=== PATIENT | female | born 1995 | race Caucasian/White ===

== ENCOUNTER 2019-05-29 10:18 | Emergency (ER) | payer OTHER ==
[2019-05-29] MEDS ORDERED: ONDANSETRON HCL INJ/PF 4 MG/2 ML SDV IV ONE (10:55)
[2019-05-29] MEDS ORDERED: NORMAL SALINE 1000 ML 1,000 ML IV ONE (10:55)
[2019-05-29 11:11] LABS: HEMATOCRIT 44.4 % (36.0-47.0); MEAN CORPUSCULAR HEMOGLOBIN 29.2 pg (27.0-33.4); MEAN CORPUSCULAR HGB CONC 33.8 g/dL (32.0-36.0); MEAN CORPUSCULAR VOLUME 86 fl (80-97); PLATELET COUNT 371 10^3/uL (150-450); RED BLOOD COUNT 5.14 10^6/uL (3.72-5.28); RED CELL DISTRIBUTION WIDTH 13.7 % (11.5-14.0); WHITE BLOOD COUNT 22.1 10^3/uL (4.0-10.5)
[2019-05-29 11:23] LABS: APPEARANCE,URINE CLEAR; BILIRUBIN,URINE NEGATIVE (NEGATIVE); COLOR,URINE YELLOW; GLUCOSE, URINE 150 mg/dL (NEGATIVE); KETONES,URINE TRACE mg/dL (NEGATIVE); LEUKOCYTE ESTERASE,URINE TRACE (NEGATIVE); NITRITE,URINE NEGATIVE (NEGATIVE); PROTEIN,URINE 100 mg/dL (NEGATIVE); URINE SPECIFIC GRAVITY 1.015; UROBILINOGEN,URINE NEGATIVE mg/dL (<2.0)
[2019-05-29 11:32] LABS: ALBUMIN 5.2 g/dL (3.5-5.0); ALKALINE PHOSPHATASE 79 U/L (38-126); ANION GAP 16 (5-19); ASPARTATE AMINO TRANSFERASE 22 U/L (14-36); BILIRUBIN,DIRECT 0.1 mg/dL (0.0-0.4); BILIRUBIN,TOTAL 0.7 mg/dL (0.2-1.3); BLOOD UREA NITROGEN 6 mg/dL (7-20); CALCIUM 9.8 mg/dL (8.4-10.2); CARBON DIOXIDE 19 mmol/L (22-30); CHLORIDE 103 mmol/L (98-107); GLUCOSE 147 mg/dL (75-110); POTASSIUM 3.9 mmol/L (3.6-5.0); TOTAL PROTEIN 8.6 g/dL (6.3-8.2)
[2019-05-29 11:44] LABS: ABSOLUTE LYMPHOCYTES# (MANUAL) 1.3 10^3/uL (0.5-4.7); ABSOLUTE MONOCYTES # (MANUAL) 0.2 10^3/uL (0.1-1.4); BASOPHILS % (MANUAL) 0 % (0-2); EOSINOPHILS % (MANUAL) 0 % (0-6); LYMPHOCYTES % (MANUAL) 3 % (13-45); MONOCYTES % (MANUAL) 1 % (3-13); PLATELET COMMENT ADEQUATE; RBC MORPHOLOGY COMMENT NORMO-CYTIC/CHROMIC; SEGMENTED NEUTROPHILS % (MAN) 93 % (42-78); TOTAL CELLS COUNTED 100
[2019-05-29] MEDS ORDERED: MAG HYDROX/AL HYDROX/SIMETH SUSP 30 ML UDCUP PO ONE (12:27)
[2019-05-29] MEDS ORDERED: LORAZEPAM INJ 2 MG/1 ML VIAL IV ONE (12:27)
[2019-05-29] MEDS ORDERED: LIDOCAINE 2% VISCOUS SOLN 20 ML UDCUP PO ONE (12:27)
[2019-05-29] MEDS ORDERED: METOCLOPRAMIDE HCL ORAL SOLN 10 MG/10 ML UDCUP PO ONE (12:27)
[2019-05-29] MEDS ORDERED: RINGERS SOLUTION,LACTATED 1,000 ML IV ONE (12:27)
--- NOTE | 2019-05-29 12:31 | ER Document Report ---
ED GI/ - General Chief Complaint: Vomiting Stated Complaint: VOMITING Time Seen by Provider: 05/29/19 11:58 Notes: Patient is a 23-year-old female who presents the emergency department with a chief complaint of nausea, vomiting, and diarrhea. She has been vomiting for the past 4 days. Her diarrhea started this morning. Patient states that she has not been able to keep anything down. She also has a past history of anxiety. Patient states that she has not been able to take her anxiety medication. She also recently just moved to the area. Patient denies any fever, cough, body aches, vaginal discharge, or dysuria. Patient has a history of ovarian cyst, but states that she does not have any pain from them. Patient also states that she has been constipated for the past 2 weeks and has not had a normal bowel movement in the past 2 weeks. Patient denies any vomiting or nausea. She also has a pustule that she noticed 2 days ago and states that it is a "bug bite" that she got from staying with a friend. Patient denies any hi story of IV drug abuse or current drug abuse. - Related Data Allergies/Adverse Reactions: amoxicillin [From Amoxil] Allergy (Verified 05/29/19 10:41) Penicillins Allergy (Verified 05/29/19 10:41) Home Medications: Hydroxazine Past Medical History - Social History Smoking Status: Never Smoker Family History: Reviewed & Not Pertinent Patient has suicidal ideation: No Patient has homicidal ideation: No Review of Systems - Review of Systems Notes: REVIEW OF SYSTEMS: CONSTITUTIONAL : Denies recent illness. Denies recent unintentional weight loss. Denies fever, chills, or sweats. EENT: Denies eye, ear, throat, or mouth pain, discharge, or symptoms. Denies nasal or sinus congestion. CARDIOVASCULAR: Denies chest pain. RESPIRATORY: Denies shortness of breath, cough, congestion, difficulty breathing, or wheezing. GASTROINTESTINAL: Denies nausea, vomiting, and diarrhea. Denies abdominal pain. Denies constipation. GENITOURINARY: See HPI. MUSCULOSKELETAL: Denies neck and back pain. Denies joint pain or swelling. SKIN: Denies rash, itchiness, or lesions HEMATOLOGIC : Denies easy bruising or bleeding. LYMPHATIC: Denies swollen, painful, enlarged glands. NEUROLOGICAL: Denies no numbness or tingling denies weakness. Denies headache. Denies altered mental status. Denies alteration in speech. PSYCHIATRIC: Denies stress, anxiety, alteration in sleep patterns, or depression. WORKERS COMPENSATION COORDINATOR: Denies abnormal vaginal bleeding, vaginal discharge, itching, or any other symptoms. All other systems reviewed and negative. Physical Exam - Vital signs Vitals: Pulse Resp BP Pulse Ox 60 22 H 171/98 H 98 05/29/19 10:27 05/29/19 10:27 05/29/19 10:27 05/29/19 10:27 - Notes Notes: PHYSICAL EXAMINATION: GENERAL: Appears well, healthy, well-nourished, no acute distress. HEAD: Normocephalic, atraumatic. EYES: PERRL, conjunctiva normal, all extraocular movements intact, sclera nonicteric ENT: Dry mucous membranes. NECK: Supple, no noticeable swelling, redness, rash. Normal range of motion. LUNGS: Equal breath sounds bilaterally and clear to auscultation. No wheezes rales or rhonchi. CARDIOVASCULAR: S1-S2, regular rate, regular rhythm. Radial pulses 2+, normal. ABDOMEN: Normoactive bowel sounds. Soft, mildly tender generalized abdomen, no guarding, no rebound tenderness, and no masses palpated. EXTREMITIES: Normal strength and range of motion, no pitting or edema. No cyanosis. NEUROLOGICAL: Moves all extremities upon command. Strength 5/5 in all ex tremities. PSYCH: Normal mood, normal affect. SKIN: Warm, dry. No rash, lesions, ulcerations noted. Normal skin turgor. Course - Re-evaluation Re-evalutation: 05/29/19 13:10 Patient's hematology shows a leukocytosis of 22,000. Her chemistries show that she is dehydrated. She received a liter of fluids in triage and Zofran. Patient states that she still feels nauseous. She also states that she feels like her GI tract is raw. She received a GI cocktail. Patient has protein in her urine, most likely due to her being dehydrated. We will repeat chemistries after she receives more fluids. 05/29/19 15:49 Patient states that she is now having chest pain. This is most likely due to her vomiting. Will order a chest x-ray and give Carafate and Pepcid. Patient has history of gastric ulcer, which is most likely cause of her chest pain. 05/29/19 17:00 Patient states that she feels better after receiving Pepcid and Carafate. Her chest x-ray is normal. Patient will be sent home with Pepcid and Carafate. I have encouraged her to follow-up with a primary care provider in the area and to call her insurance company to see which primary care doctor she can go to. She is in agreement with this plan. Follow-up precautions were given. Verbal discharge instructions were given to the patient. They verbalized unders tanding. They are stable for discharge. - Vital Signs Vital signs: Temp Pulse Resp BP Pulse Ox 98.7 F 88 18 178/94 H 100 05/29/19 15:41 05/29/19 15:41 05/29/19 15:41 05/29/19 15:41 05/29/19 15:41 - Laboratory Result Diagrams: 05/29/19 09:52 05/29/19 14:05 Laboratory results interpreted by me: 05/29/19 05/29/19 05/29/19 09:52 09:52 09:52 WBC 22.1 H Seg Neuts % (Manual) 93 H Lymphocytes % (Manual) 3 L Monocytes % (Manual) 1 L Abs Neuts (Manual) 20.6 H Sodium Carbon Dioxide 19 L BUN 6 L Glucose 147 H Total Protein 8.6 H Albumin 5.2 H Lipase Urine Protein 100 H Urine Glucose (UA) 150 H Urine Ketones TRACE H Urine Blood MODERATE H Ur Leukocyte Esterase TRACE H 05/29/19 05/29/19 09:52 14:05 WBC Seg Neuts % (Manual) Lymphocytes % (Manual) Monocytes % (Manual) Abs Neuts (Manual) Sodium 136.1 L Carbon Dioxide 20 L BUN 5 L Glucose 118 H Total Protein Albumin Lipase 17.5 L Urine Protein Urine Glucose (UA) Urine Ketones Urine Blood Ur Leukocyte Esterase Discharge - Discharge Clinical Impression: Nausea Vomiting Qualifiers: Vomiting type: unspecified Vomiting Intractability: non-intractable Nausea presence: with nausea Qualified Code(s): R11.2 - Nausea with vomiting, unspecified Diarrhea Qualifiers: Diarrhea type: unspecified type Qualified Code(s): R19.7 - Diarrhea, unspecified Gastritis Qualifiers: Gastritis type: unspecified gastritis Chronicity: acute Gastritis bleeding: with bleeding Qualified Code(s): K29.01 - Acute gastritis with bleeding Condition: Stable Disposition: HOME, SELF-CARE Instructions: Antinausea Medication ([facility]), Intravenous (IV) Fluids ([facility]) Additional Instructions: You were seen today in the emergency department for nausea, vomiting, and diarrhea. Your labs show that you were dehydrated. You received IV fluids here in the emergency department. You are also being started on nausea medication at home. Please take as prescribed. Please establish a primary care provider as soon as you can. Follow-up with them as needed. Prescriptions: Sucralfate [Carafate 1 gm Tablet] 1 gm PO ACHS #120 tablet Famotidine [Pepcid 20 mg Tablet] 20 mg PO BID #60 tablet Metoclopramide HCl [Reglan 10 mg Tablet] 1 - 2 tab PO ASDIR PRN #25 tablet PRN Reason:
[2019-05-29] MEDS ORDERED: PROMETHAZINE HCL INJ 25 MG/1 ML VIAL IV ONE (13:51)
[2019-05-29 14:39] LABS: ANION GAP 14 (5-19); BLOOD UREA NITROGEN 5 mg/dL (7-20); CALCIUM 9.1 mg/dL (8.4-10.2); CARBON DIOXIDE 20 mmol/L (22-30); CHLORIDE 102 mmol/L (98-107); GLUCOSE 118 mg/dL (75-110)
[2019-05-29 15:43] VITALS: BP 178/94
[2019-05-29] MEDS ORDERED: SUCRALFATE 1 GM TABLET PO ONE (15:48)
[2019-05-29] MEDS ORDERED: FAMOTIDINE 40 MG/5 ML SUSP 50 ML PO ONE (15:48)
--- NOTE | 2019-05-29 16:26 | RADIOLOGY REPORT (SQ) ---
EXAM DESCRIPTION: CHEST SINGLE VIEW COMPLETED DATE/TIME: 05/29/2019 4:16 pm REASON FOR STUDY: chest pain COMPARISON: None. EXAM PARAMETERS: NUMBER OF VIEWS: One view. TECHNIQUE: Single frontal radiographic view of the chest acquired. RADIATION DOSE: NA LIMITATIONS: None. FINDINGS: LUNGS AND PLEURA: No opacities, masses or pneumothorax. No pleural effusion. MEDIASTINUM AND HILAR STRUCTURES: No masses. Contour normal. HEART AND VASCULAR STRUCTURES: Heart normal in size. Normal vasculature. BONES: No acute findings. HARDWARE: None in the chest. OTHER: No other significant finding. IMPRESSION: NO ACUTE RADIOGRAPHIC FINDING IN THE CHEST. TECHNICAL DOCUMENTATION: JOB ID: [id number] [employer]- All Rights Reserved Reading location - IP/workstation name: [email or web address]
[2019-05-29] MEDS ORDERED: PROMETHAZINE HCL INJ 25 MG/1 ML VIAL IM ONE (17:38)
== END 2019-05-29 17:45 | disposition home or self-care (01) ==
LOC: ER 10:18
DX: K29.01 Acute gastritis with bleeding (principal); R11.2 Nausea with vomiting, unspecified; R19.7 Diarrhea, unspecified; F41.9 Anxiety disorder, unspecified; Z79.899 Other long term (current) drug therapy
CPT/HCPCS: 99284; 96372; 96361; 96374; 96375; 36415; 87086; 83690; 85025; 81025; 80053; 81001; 71045; J3490 ×2; J2060; J2550; J2405; J7030; J7120

== ENCOUNTER 2019-06-01 12:13 | Emergency (ER) | payer OTHER ==
[2019-06-01] MEDS ORDERED: METOCLOPRAMIDE HCL INJ/PF 10 MG/2 ML SDV IV ONE (12:37)
[2019-06-01] MEDS ORDERED: NORMAL SALINE 1000 ML 1,000 ML IV ONE (12:37)
--- NOTE | 2019-06-01 12:41 | ER Document Report ---
ED Medical Screen (RME) - General Chief Complaint: Abdominal Pain Stated Complaint: VOMITING Time Seen by Provider: 06/01/19 12:23 Notes: Patient is a 23-year-old female who presents to the emergency department for vomiting. Patient has been vomiting for the past week. She was seen here in the emergency department and was given prescriptions, but was unable to get her prescriptions filled. Patient has history of cyclic vomiting syndrome. She also has history of marijuana use, which she states that she stopped using a week and a half ago. Patient also has a history of anxiety and normally takes Vistaril. Exam: Patient appears anxious and has a vomit bag in her hand. I have greeted and performed a rapid initial assessment of this patient. A comprehensive ED assessment and evaluation of the patient, analysis of test results and completion of medical decision making process will be conducted by an additional ED providers. TRAVEL OUTSIDE OF THE [place] IN LAST 30 DAYS: No - Related Data Allergies/Adverse Reactions: amoxicillin [From Amoxil] Allergy (Verified 06/01/19 12:32) Penicillins Allergy (Verified 06/01/19 12:32) Past Medical History - Social History Chew tobacco use (# tins/day): No Frequency of alcohol use: None Drug Abuse: None Physical Exam - Vital signs Vitals: Temp Pulse Resp BP Pulse Ox 97.8 F 134 H 20 174/119 H 100 06/01/19 12:22 06/01/19 12:22 06/01/19 12:22 06/01/19 12:22 06/01/19 12:22 Course - Vital Signs Vital signs: Temp Pulse Resp BP Pulse Ox 97.8 F 134 H 20 174/119 H 100 06/01/19 12:32 06/01/19 12:32 06/01/19 12:32 06/01/19 12:32 06/01/19 12:32
[2019-06-01 13:07] LABS: ABSOLUTE BASOPHILS # (AUTO) 0.1 10^3/uL (0.0-0.2); ABSOLUTE EOSINOPHILS # (AUTO) 0.1 10^3/uL (0.0-0.6); ABSOLUTE LYMPHOCYTES (AUTO) 3.4 10^3/uL (0.5-4.7); ABSOLUTE MONOCYTES (AUTO) 1.5 10^3/uL (0.1-1.4); ABSOLUTE NEUT (AUTO) 12.1 10^3/uL (1.7-8.2); BASOPHILS % (AUTO) 0.7 % (0-2); EOSINOPHILS % (AUTO) 0.6 % (0-6); HEMOGLOBIN 16.7 g/dL (12.0-15.5); LYMPHOCYTES % (AUTO) 19.5 % (13-45); MEAN CORPUSCULAR HEMOGLOBIN 29.1 pg (27.0-33.4); MEAN CORPUSCULAR HGB CONC 34.2 g/dL (32.0-36.0); MEAN CORPUSCULAR VOLUME 85 fl (80-97); MONOCYTES % (AUTO) 8.6 % (3-13); PLATELET COUNT 397 10^3/uL (150-450); RED BLOOD COUNT 5.74 10^6/uL (3.72-5.28); RED CELL DISTRIBUTION WIDTH 13.2 % (11.5-14.0); SEGMENTED NEUTROPHILS % (AUTO) 70.6 % (42-78); TOTAL CELLS COUNTED % (AUTO) 100 %; WHITE BLOOD COUNT 17.2 10^3/uL (4.0-10.5)
[2019-06-01] MEDS ORDERED: DIPHENHYDRAMINE HCL 50 MG/ML VIAL IV ONE (13:15)
[2019-06-01 13:30] LABS: ALBUMIN 5.3 g/dL (3.5-5.0); ALKALINE PHOSPHATASE 80 U/L (38-126); ASPARTATE AMINO TRANSFERASE 35 U/L (14-36); BILIRUBIN,DIRECT 0.3 mg/dL (0.0-0.4); BILIRUBIN,TOTAL 1.7 mg/dL (0.2-1.3); BLOOD UREA NITROGEN 14 mg/dL (7-20); CALCIUM 10.9 mg/dL (8.4-10.2); CARBON DIOXIDE 22 mmol/L (22-30); CHLORIDE 93 mmol/L (98-107); GLUCOSE 110 mg/dL (75-110); POTASSIUM 3.7 mmol/L (3.6-5.0); TOTAL PROTEIN 9.2 g/dL (6.3-8.2)
[2019-06-01 13:42] LABS: ANION GAP 21 (5-19)
[2019-06-01] MEDS ORDERED: DEXTROSE 5%-LACTATED RINGERS 1,000 ML IV ONE (14:00)
--- NOTE | 2019-06-01 14:00 | ER Document Report ---
Entered by MALLORY HILTON SCRIBE 06/01/19 1323 Acting as scribe for:LEELA MARKHAM MD ED General - General Chief Complaint: Abdominal Pain Stated Complaint: VOMITING Time Seen by Provider: 06/01/19 12:23 Mode of Arrival: Ambulatory Information source: Patient Notes: This 23-year-old female patient presents to the emergency department today with complaints of nausea and vomiting for the last 5 days. Patient states she moved here from [place] on 05/27/2019 and was seen here on 05/29/2019 for the same symptoms that she is being seen for today. Patient states in [place] she was told that these symptoms could be related to her marijuana usage as she has had these symptoms chronically for quite some time. Patient states that she thinks it is related to her "bad anxiety disorder that kicks it off". Patient requesting something for anxiety, but mentions that she has plenty of Vistaril at home but she is unable to keep it down. Patient states her legs go numb when she hyperventilates as well. TRAVEL OUTSIDE OF THE [place] IN LAST 30 DAYS: No - Related Data Allergies/Adverse Reactions: amoxicillin [From Amoxil] Allergy (Verified 06/01/19 12:32) Penicillins Allergy (Verified 06/01/19 12:32) Past Medical History - General Information source: Patient - Social History Smoking Status: Never Smoker Cigarette use (# per day): No Chew tobacco use (# tins/day): No Frequency of alcohol use: Occasional Drug Abuse: Marijuana Family History: Reviewed & Not Pertinent Patient has suicidal ideation: No Patient has homicidal ideation: No GI Medical History: Reports: Hx Ulcer, Hx Endoscopy Psychiatric Medical History: Reports: Hx Anxiety Past Surgical History: Reports: Hx Orthopedic Surgery - right shoulder SLAP tear repair Review of Systems - Review of Systems Constitutional: No symptoms reported EENT: No symptoms reported Cardiovascular: No symptoms reported Respiratory: No symptoms reported Gastrointestinal: See HPI, Nausea, Vomiting Genitourinary: No symptoms reported Female Genitourinary: No symptoms reported Musculoskeletal: No symptoms reported Skin: No symptoms reported Hematologic/Lymphatic: No symptoms reported Neurological/Psychological: See HPI, Anxiety -: Yes All other systems reviewed and negative Physical Exam - Vital signs Vitals: Temp Pulse Resp BP Pulse Ox 97.8 F 134 H 20 174/119 H 100 06/01/19 12:22 06/01/19 12:22 06/01/19 12:22 06/01/19 12:22 06/01/19 12:22 - Notes Notes: Physical Exam: General: Alert, appears well. HEENT: Normocephalic. Atraumatic. PERRL. Extraocular movements intact. Oropharynx clear. Neck: Supple. Non-tender. Respiratory: No respiratory distress. Clear and equal breath sounds bilaterally. Cardiovascular: Regular rate and rhythm. Abdominal: Obese. Non-tender. No distension. Normal Bowel Sounds. Back: No gross abnormalities. Extremities: Moves all four extremities. Upper extremities: Normal inspection. Normal ROM. Lower extremities: Normal inspection. No edema. Normal ROM. Neurological: Normal cognition. AAOx4. Normal speech. Psychological: Mildly anxious Skin: Warm. Dry. Normal color. Course - Re-evaluation Re-evalutation: 06/01/19 16:00 Patient's hemoglobin is gone up by 1.7 g since yesterday, so I suspect that she has gotten a little dehydrated. Her absolute neutrophil count has gone down from 20.6-12.1 At this time the patient is asking for additional IV fluids just in case she starts on it when she gets home. Her urine is quite dilute, but I will give her another liter of saline and then discharge her with a Phenergan dispense pack, and a recommendation that she gets the Reglan prescription from 3 days ago filled and use that for her nausea. - Vital Signs Vital signs: Temp Pulse Resp BP Pulse Ox 97.8 F 134 H 15 125/70 97 06/01/19 12:32 06/01/19 12:32 06/01/19 14:01 06/01/19 14:01 06/01/19 14:01 - Laboratory Result Diagrams: 06/01/19 12:59 06/01/19 12:59 Laboratory results interpreted by me: 06/01/19 06/01/19 06/01/19 12:59 12:59 15:05 WBC 17.2 H RBC 5.74 H Hgb 16.7 H Hct 49.0 H Absolute Neuts (auto) 12.1 H Absolute Monos (auto) 1.5 H Sodium 135.6 L Chloride 93 L Anion Gap 21 H Calcium 10.9 H Total Bilirubin 1.7 H Total Protein 9.2 H Albumin 5.3 H Urine Ketones 20 H Urine Blood LARGE H Discharge - Discharge Clinical Impression: Cannabinoid hyperemesis syndrome, Dehydration Anxiety disorder Qualifiers: Anxiety disorder type: unspecified anxiety disorder Qualified Code(s): F41.9 - Anxiety disorder, unspecified Condition: Stable Disposition: HOME, SELF-CARE Additional Instructions: Nausea and Vomiting: Vomiting (or nausea without vomiting) can be caused by many different problems. Of course, it can mean that something's wrong with the stomach, such as "stomach flu," ulcers, or inflammation. But it can also be a symptom of a problem that has nothing to do with the stomach or intestines. Vomiting is common with severe headaches, earaches, and tonsillitis. We see it with pneumonia or heart attacks. Drugs can cause nausea. Many abdominal problems cause vomiting; for example, gallstones, kidney stones, pancreatitis, and intestinal obstruction (blocked bowels). Based on your history, this is most likely cyclic vomiting due to chronic use of marijuana. It is commonly known as cannabinoid hyperemesis syndrome. In most cases, curing the vomiting depends on fixing the problem that caus ed it. For temporary relief, we may use an anti-nausea medicine. For home use, we can prescribe suppositories, chewable pills, pills that dissolve in the mouth, or liquid anti-nausea drugs. It's important to avoid dehydration. Sip clear liquids. Take increasing amounts of fluid over the first 24 hours. Then start small amounts of bland foods (such as dry toast, applesauce, mashed potato). Avoid aspirin, tobacco, and alcohol. Gradually resume your usual diet. If the vomiting worsens, if the problem that's making you vomit worsens, or if there's evidence of bleeding in the stomach (such as black, tarry stool, bloody or black vomit, or lightheadedness), you should return immediately. Call your doctor if you aren't improved in 24 to 36 hours. Your vomiting is most likely a side effect of chronic use of marijuana. If this is cyclic vomiting caused by the marijuana use, it will continue to be a problem until you stop smoking marijuana completely for several weeks. Fill the prescription for Reglan from 3 days ago and take that for your nauseousness. You are being sent home with a dispense pack of Phenergan suppositories in case your vomiting too much to hold down the Reglan tablets. Drink cool clear liquids until the nausea has been controlled enough that you can start to eat again. Take antacids for heartburn symptoms if needed. Follow-up with a local medical doctor if you are not improving. RETURN TO THE EMERGENCY ROOM IF ANY NEW OR WORSENING SYMPTOMS. Scribe Attestation: 06/01/19 14:00 I personally performed the services described in the documentation, reviewed and edited the documentation which was dictated to the scribe in my presence, and it accurately records my words and actions. I personally performed the services described in the documentation, reviewed and edited the documentation which was dictated to the scribe in my presence, and it accurately records my words and actions.
[2019-06-01] MEDS ORDERED: ONDANSETRON HCL INJ/PF 4 MG/2 ML SDV IV ONE (15:01)
[2019-06-01 15:33] LABS: APPEARANCE,URINE SLIGHTLY-CLOUDY; BILIRUBIN,URINE NEGATIVE (NEGATIVE); COLOR,URINE YELLOW; GLUCOSE, URINE NEGATIVE (NEGATIVE); KETONES,URINE 20 mg/dL (NEGATIVE); LEUKOCYTE ESTERASE,URINE NEGATIVE (NEGATIVE); NITRITE,URINE NEGATIVE (NEGATIVE); PROTEIN,URINE NEGATIVE (NEGATIVE); URINE SPECIFIC GRAVITY 1.005; UROBILINOGEN,URINE NEGATIVE mg/dL (<2.0)
[2019-06-01] MEDS ORDERED: MAG HYDROX/AL HYDROX/SIMETH SUSP 30 ML UDCUP PO ONE (15:44)
[2019-06-01] MEDS ORDERED: LIDOCAINE 2% VISCOUS SOLN 20 ML UDCUP PO ONE (15:44)
[2019-06-01 16:03] LABS: URINE AMPHETAMINES SCREEN NEGATIVE; URINE BARBITURATES SCREEN NEGATIVE; URINE BENZODIAZEPINES SCREEN NEGATIVE; URINE COCAINE SCREEN NEGATIVE; URINE METHADONE SCREEN NEGATIVE; URINE PHENCYCLIDINE SCREEN NEGATIVE
[2019-06-01 16:06] LABS: URINE MARIJUANA (THC) SCREEN UNCONFIRMED POSITIVE
[2019-06-01] MEDS ORDERED: RINGERS SOLUTION,LACTATED 1,000 ML IV ONE (16:09)
[2019-06-01] MEDS ORDERED: PROMETHAZINE HCL 25 MG SUPP (4 SUPP/ER DISP) PR ONE (16:09)
[2019-06-01 17:58] VITALS: BP 167/102
== END 2019-06-01 18:05 | disposition home or self-care (01) ==
LOC: ER 12:13
DX: K52.9 Noninfective gastroenteritis and colitis, unspecified (principal); R11.2 Nausea with vomiting, unspecified; R10.2 Pelvic and perineal pain; R10.813 Right lower quadrant abdominal tenderness; R10.13 Epigastric pain; R10.11 Right upper quadrant pain; F17.200 Nicotine dependence, unspecified, uncomplicated; Z88.0 Allergy status to penicillin
CPT/HCPCS: 99284; 96361; 96374; 96375; 36415; 85025; 80053; 81001; 80307; J1200; J3490 ×2; J2765; J2405; J7121; J7030; J7120

== ENCOUNTER 2019-06-04 10:28 | Emergency (ER) | payer OTHER ==
--- NOTE | 2019-06-04 11:21 | ER Document Report ---
ED Medical Screen (RME) - General Chief Complaint: Nausea/Vomiting Stated Complaint: NAUSEA/VOMITNG Time Seen by Provider: 06/04/19 11:18 Mode of Arrival: Wheelchair Information source: Patient Notes: 23-year-old female presents to ED for complaint of nausea and vomiting since . She states she is having multiple emesis every day and she has had about 12 today. She states she is having pain mostly to the right upper quadrant. She states she has not had a bowel movement since she started vomiting. Patient is alert oriented respirations regular nonlabored. Abdomen soft, tender to the right upper quadrant bowel sounds active. Menstrual period May 27 I have greeted and performed a rapid initial assessment of this patient. A comprehensive ED assessment and evaluation of the patient, analysis of test results and completion of medical decision making process will be conducted by an additional ED providers. TRAVEL OUTSIDE OF THE [place] IN LAST 30 DAYS: No - Related Data Allergies/Adverse Reactions: amoxicillin [From Amoxil] Allergy (Verified 06/04/19 11:15) Penicillins Allergy (Verified 06/04/19 11:15) Past Medical History GI Medical History: Reports: Hx Ulcer, Hx Endoscopy Psychiatric Medical History: Reports: Hx Anxiety Past Surgical History: Reports: Hx Orthopedic Surgery - right shoulder SLAP tear repair Physical Exam - Vital signs Vitals: Temp Pulse Resp BP Pulse Ox 98.1 F 109 H 16 143/106 H 100 06/04/19 10:42 06/04/19 10:42 06/04/19 10:42 06/04/19 10:42 06/04/19 10:42 Course - Vital Signs Vital signs: Temp Pulse Resp BP Pulse Ox 98.1 F 109 H 16 143/106 H 100 06/04/19 10:42 06/04/19 10:42 06/04/19 10:42 06/04/19 10:42 06/04/19 10:42
[2019-06-04] MEDS ORDERED: ONDANSETRON 4 MG TAB.RAPDIS PO ONE (11:22)
[2019-06-04] MEDS ORDERED: NORMAL SALINE 1000 ML 1,000 ML IV ONE (11:24)
--- NOTE | 2019-06-04 12:10 | RADIOLOGY REPORT (SQ) ---
EXAM DESCRIPTION: U/S ABDOMEN LIMITED W/O DOP COMPLETED DATE/TIME: 06/04/2019 11:46 am REASON FOR STUDY: Right upper quadrant abdominal pain nausea and vomiting COMPARISON: None. TECHNIQUE: Grayscale images acquired of the abdomen and recorded on PACS. Additional selected color Doppler and spectral images recorded. LIMITATIONS: Overlying bowel gas. FINDINGS: PANCREAS: Partially obscured by overlying bowel gas. The visualized pancreas in the midli ne is unremarkable. LIVER: Measures 13.8 cm. Echotexture normal. LIVER VASCULATURE: Normal directional flow of the main portal vein. GALLBLADDER: No stones. Normal wall thickness. No pericholecystic fluid. ULTRASOUND-DETECTED YI'S SIGN: Negative. INTRAHEPATIC DUCTS AND COMMON DUCT: CBD and intrahepatic ducts normal caliber. INFERIOR VENA CAVA: Patent. AORTA: No aneurysm at the visualized segments. RIGHT KIDNEY: Measures 9.7 cm in length. Normal echogenicity. No hydronephrosis. No calcifications. PERITONEAL AND RIGHT PLEURAL SPACE: No ascites or effusions. IMPRESSION: No cholelithiasis or biliary ductal dilation. TECHNICAL DOCUMENTATION: JOB ID: [id number] [employer]- All Rights Reserved Reading location - IP/workstation name: [email or web address]
[2019-06-04 13:04] LABS: ABSOLUTE BASOPHILS # (AUTO) 0.1 10^3/uL (0.0-0.2); ABSOLUTE EOSINOPHILS # (AUTO) 0.1 10^3/uL (0.0-0.6); ABSOLUTE LYMPHOCYTES (AUTO) 2.8 10^3/uL (0.5-4.7); ABSOLUTE MONOCYTES (AUTO) 1.2 10^3/uL (0.1-1.4); ABSOLUTE NEUT (AUTO) 11.6 10^3/uL (1.7-8.2); BASOPHILS % (AUTO) 0.6 % (0-2); EOSINOPHILS % (AUTO) 0.4 % (0-6); HEMOGLOBIN 15.2 g/dL (12.0-15.5); LYMPHOCYTES % (AUTO) 17.7 % (13-45); MEAN CORPUSCULAR HEMOGLOBIN 29.2 pg (27.0-33.4); MEAN CORPUSCULAR HGB CONC 33.9 g/dL (32.0-36.0); MEAN CORPUSCULAR VOLUME 86 fl (80-97); MONOCYTES % (AUTO) 7.6 % (3-13); PLATELET COUNT 290 10^3/uL (150-450); RED BLOOD COUNT 5.22 10^6/uL (3.72-5.28); RED CELL DISTRIBUTION WIDTH 13.2 % (11.5-14.0); SEGMENTED NEUTROPHILS % (AUTO) 73.7 % (42-78); TOTAL CELLS COUNTED % (AUTO) 100 %; WHITE BLOOD COUNT 15.8 10^3/uL (4.0-10.5)
--- NOTE | 2019-06-04 13:16 | ER Document Report ---
ED General - General Chief Complaint: Nausea/Vomiting Stated Complaint: NAUSEA/VOMITNG Time Seen by Provider: 06/04/19 11:18 Mode of Arrival: Wheelchair TRAVEL OUTSIDE OF THE [place] IN LAST 30 DAYS: No - HPI Notes: Patient is a 23-year-old female with history of anxiety and stomach ulcers who presents complaining of right lower pelvic pain for the past week with associated nausea and vomiting for the past 2 weeks. Patient states that she has not had a good bowel movement over the course of 2 weeks, but is continuing to pass gas. Patient states that 2 weeks ago she did stop smoking marijuana. She does not take any medicines daily. She has had decreased p.o. intake. She is still urinating normally. She has not noticed any vaginal discharge, odor, or bleeding. She only endorses epigastric/RUQ pain when she is vomiting, otherwise no pain. Denies any headache, fever, neck pain, URI, sore throat, chest pain, palpitations, syncope, cough, shortness of breath, wheeze, dyspnea, diarrhea, urinary retention, dysuria, hematuria, or rash. She has been seen for this issue 2 other times in the last 8 days here. - Related Data Allergies/Adverse Reactions: amoxicillin [From Amoxil] Allergy (Verified 06/04/19 11:15) Penicillins Allergy (Verified 06/04/19 11:15) Past Medical History - General Information source: Patient - Social History Smoking Status: Current Every Day Smoker Chew tobacco use (# tins/day): No Frequency of alcohol use: None Drug Abuse: None Family History: Reviewed & Not Pertinent Patient has suicidal ideation: No Patient has homicidal ideation: No GI Medical History: Reports: Hx Ulcer, Hx Endoscopy Psychiatric Medical History: Reports: Hx Anxiety Past Surgical History: Reports: Hx Orthopedic Surgery - right shoulder SLAP tear repair Review of Systems - Review of Systems -: Yes All other systems reviewed and negative Physical Exam - Vital signs Vitals: Temp Pulse Resp BP Pulse Ox 98.1 F 109 H 16 143/106 H 100 06/04/19 10:42 06/04/19 10:42 06/04/19 10:42 06/04/19 10:42 06/04/19 10:42 - Notes Notes: PHYSICAL EXAMINATION: GENERAL: Well-appearing, well-nourished and in no acute distress. HEAD: Atraumatic, normocephalic. EYES: Pupils equal round and reactive to light, extraocular movements intact, conjunctiva are normal. ENT: Nares patent, oropharynx clear without exudates. Moist mucous membranes. No tonsillar hypertrophy or erythema. No sinus tenderness. NECK: Normal range of motion, supple without lymphadenopathy LUNGS: Breath sounds clear to auscultation bilaterally and equal. No wheezes rales or rhonchi. HEART: Regular rate and rhythm without murmurs ABDOMEN: Soft, nondistended abdomen. No guarding, no rebound. Normal bowel sounds present. No CVA tenderness bilaterally. + tenderness RLQ/Rt lower pelvic area. Rosas neg. Female : No inguinal adenopathy. External genitalia without erythema, lesions, or masses. Vaginal mucosa pink with scant bloody discharge. Cervix parous, pink, and with bloody discharge. Uterus is smooth. No adnexal tenderness. No CMT. Accompanied by female tech, rebecca. Musculoskeletal: FROM to passive/active. Strength 5+/5. Extremities: No cyanosis/clubbing/edema b/l. Peripheral pulses 2+. Capillary refill less than 3 seconds. NEUROLOGICAL: Normal speech, normal gait. PSYCH: Normal mood, normal affect. SKIN: Warm, Dry, normal turgor, no rashes or lesions noted. Course - Re-evaluation Re-evalutation: 06/04/19 17:11 Patient is an afebrile, well-hydrated, 23-year-old female who presents with ascending colitis in her abdomen. Vitals are acceptable without significant tachycardia, tachypnea, or hypoxia. PE is otherwise unremarkable. Patient is nontoxic-appearing and is able to tolerate p.o. without difficulty. Labs are acceptable. She has not had any emesis throughout her stay. See imaging results. No further work-up warranted at this time. Low suspicion/risk for acute appendicitis, bowel obstruction, acute cholecystitis, acute cholangitis, perforated diverticulitis, incarcerated hernia, pancreatitis, perforated ulcer, peritonitis, sepsis, pelvic inflammatory disease, ectopic , tubo-ovari an abscess, ovarian torsion, or other systemic emergent condition at this time. Patient is aware that her condition can change from initial presentation and she needs to monitor symptoms closely and seek medical attention if any acute changes. Rx for cipro/flagyl. Conservative measures otherwise for symptoms. Recheck with your PCM in 2-3 days. Consider consult with a extension service specialist. Return to the ED with any worsening/concerning symptoms otherwise as reviewed in discharge. Patient is in agreement. - Vital Signs Vital signs: Temp Pulse Resp BP Pulse Ox 98.1 F 109 H 16 128/82 H 100 06/04/19 11:15 06/04/19 10:42 06/04/19 11:15 06/04/19 11:21 06/04/19 11:15 - Laboratory Result Diagrams: 06/04/19 12:45 06/04/19 15:30 Laboratory results interpreted by me: 06/04/19 06/04/19 12:45 15:30 WBC 15.8 H Absolute Neuts (auto) 11.6 H Sodium 135.8 L Potassium 3.3 L Chloride 97 L Procedures - Pelvic Exam Pelvic exam Cultures obtained: Yes Wet prep obtained: Yes Bimanual exam performed: Yes - negative Witnessed by: nurse Rebecca Discharge - Discharge Clinical Impression: Colitis Condition: Stable Disposition: HOME, SELF-CARE Instructions: Colitis, Nonspecific ([facility]) Additional Instructions: Maintain adequate fluid and food intake [place] diet ([facility] Bananas, rice, apples, toast, etc Zofran as needed tylenol if needed Monitor for any worsening symptoms Make sure you are staying hydrated enough to urinate and have normal BM's Recheck with your PCM in 2-3 days Consider consult with Gastroenterology for ongoing/worsening symptoms Return to the ED with any worsening symptoms and/or development of fever, headache, chest pain, palpitations, syncope, shortness of breath, trouble breathing, abdominal pain, n/v/d, blood in stool/urine, weakness, or other worsening symptoms that are concerning to you. Prescriptions: Ciprofloxacin HCl [Cipro 500 mg Tablet] 500 mg PO BID #20 tablet Metronidazole [Flagyl] 500 mg PO TID #30 tablet Metoclopramide HCl [Reglan] 10 mg PO BID PRN #10 tablet PRN Reason: Tramadol HCl [Ultram 50 mg Tablet] 50 mg PO TID #15 tab Forms: Elevated Blood Pressure, Smoking Cessation Education Referrals: LOBITO PALOMINO MD [ACTIVE STAFF] - Follow up as needed PHILL AHN MD [ACTIVE STAFF] - Follow up as needed
[2019-06-04] MEDS ORDERED: AZITHROMYCIN 250 MG TABLET PO ONE (13:21)
[2019-06-04] MEDS ORDERED: LIDOCAINE 1% INJ-PF (10 MG/ML) 30 ML SDV INJ ONE (13:21)
[2019-06-04] MEDS ORDERED: CEFTRIAXONE INJ 250 MG VIAL IM ONE (13:21)
--- NOTE | 2019-06-04 14:23 | RADIOLOGY REPORT (SQ) ---
EXAM DESCRIPTION: U/S NON OB PEL TV W/DOPPLER COMPLETED DATE/TIME: 06/04/2019 2:13 pm REASON FOR STUDY: rt pelvic pain COMPARISON: None. TECHNIQUE: Dynamic and static grayscale images acquired of the pelvis via transvaginal approach and recorded on PACS. Additional selected color Doppler and spectral images recorded. LIMITATIONS: None. FINDINGS: UTERUS: The uterus measures 6.2 x 3.1 x 3.6 cm. No focal myometrial mass was seen. ENDOMETRIAL STRIPE: The endometrium measures 3.2 mm in double wall thickness. An intrauterine device is noted at the endometrial canal. CERVIX: The cervix measures 2.5 cm in length. RIGHT OVARY AND DOPPLER: The right ovary measures 2.1 x 3.0 x 1.8 cm. Flow by Doppler was shown to t he right ovary. LEFT OVARY AND DOPPLER: The left ovary measures 2.8 x 2.9 x 1.3 cm. Flow by Doppler was shown to the left ovary. FREE FLUID: None noted. IMPRESSION: No acute findings. TECHNICAL DOCUMENTATION: JOB ID: [id number] 2010 [employer]- All Rights Reserved Rev-11/12 Reading location - IP/workstation name: [email or web address]
[2019-06-04 14:55] LABS: BACTERIA (WET MOUNT) 3+ BACTERIA SEEN; EPITHELIALS (WET MOUNT) 3+ EPITHELIALS SEEN; RBCS (WET MOUNT) 4+ RBCS SEEN; T.VAGINALIS (WET MOUNT) NO TRICHOMONAS SEEN; WBCS (WET MOUNT) 1+ WBCS SEEN; YEAST (WET MOUNT) NO YEAST SEEN
[2019-06-04 16:21] LABS: ALBUMIN 4.6 g/dL (3.5-5.0); ALKALINE PHOSPHATASE 66 U/L (38-126); ANION GAP 13 (5-19); ASPARTATE AMINO TRANSFERASE 26 U/L (14-36); BILIRUBIN,DIRECT 0.1 mg/dL (0.0-0.4); BLOOD UREA NITROGEN 10 mg/dL (7-20); CALCIUM 8.9 mg/dL (8.4-10.2); CARBON DIOXIDE 26 mmol/L (22-30); CHLORIDE 97 mmol/L (98-107); GLUCOSE 96 mg/dL (75-110); POTASSIUM 3.3 mmol/L (3.6-5.0); TOTAL PROTEIN 7.6 g/dL (6.3-8.2)
[2019-06-04 16:26] LABS: CHLAM PCR NOT DETECTED (NOT DETECT)
[2019-06-04] MEDS ORDERED: POTASSIUM CHLORIDE 10 MEQ TABLET.ER PO ONE (16:27)
--- NOTE | 2019-06-04 17:02 | RADIOLOGY REPORT (SQ) ---
EXAM DESCRIPTION: CT ABD/PELVIS WITH IV ONLY COMPLETED DATE/TIME: 06/04/2019 4:44 pm REASON FOR STUDY: RLQ pain, TVUS unremarkable, eval appendix COMPARISON: None. TECHNIQUE: CT scan of the abdomen and pelvis performed using helical scanning technique with dynamic intravenous contrast injection. No oral contrast. Images reviewed with lung, soft tissue, and bone windows. Reconstructed coronal and sagittal MPR images reviewed. Delayed images for evaluation of the urinary system also acquired. All images stored on PACS. All CT scanners at this facility use dose modulation, iterative reconstruction, and/or weight based d osing when appropriate to reduce radiation dose to as low as reasonably achievable (ALARA). [facility]: Dose Right [facility]: CareDose [facility]: Dose Right [facility]: Teradose 4D [facility]: IEV CONTRAST TYPE AND DOSE: contrast/concentration: Isovue 350.00 mg/ml; Total Contrast Delivered: 89.0 ml; Total Saline Delivered: 70.0 ml RENAL FUNCTION: None required. The patient is less than 50 years old. RADIATION DOSE: CT Rad equipment meets quality standard of care and radiation dose reduction techniq ues were employed. CTDIvol: 7.3 - 10.1 mGy. DLP: 904 mGy-cm.. LIMITATIONS: None. FINDINGS: LOWER CHEST: No consolidation or pleural effusion. LIVER: Normal size. No masses. No dilated ducts. SPLEEN: Normal size. PANCREAS: No significant calcifications. No adjacent inflammation or peripancreatic fluid collections . Pancreatic duct not dilated. GALLBLADDER: Present. ADRENAL GLANDS: No significant masses or asymmetry. RIGHT KIDNEY AND URETER: No solid masses. No significant calcifications. No hydronephrosis or hyd roureter. LEFT KIDNEY AND URETER: No solid masses. No significant calcifications. No hydronephrosis or hydr oureter. AORTA AND VESSELS: No abdominal aortic aneurysm or evidence for acute dissection. RETROPERITONEUM: No retroperitoneal hemorrhage or masses. BOWEL AND PERITONEAL CAVITY: No dilated bowel loops to suggest obstruction. There is wall thickening at the ascending colon with mild adjacent soft tissue stranding. No free fluid or free air. APPENDIX: Normal. PELVIS: The urinary bladder is distended. An intrauterine device is noted at the uterus. No free fl uid. ABDOMINAL WALL: No hernias. BONES: No significant or acute findings. IMPRESSION: Wall thickening at the ascending colon with mild adjacent soft tissue stranding, suggest irivn of colitis. TECHNICAL DOCUMENTATION: JOB ID: [id number] [facility] Quality ID # [id number]: Final reports with documentation of one or more dose reduction techniques (e.g., Au tomated exposure control, adjustment of the mA and/or kV according to patient size, use of iterative reconstruction technique) 2010 [employer]- All Rights Reserved Reading location - IP/workstation name: [email or web address]
[2019-06-04] MEDS ORDERED: PROMETHAZINE HCL INJ 50 MG/1 ML VIAL IM PRN (17:19)
[2019-06-04 17:24] LABS: APPEARANCE,URINE SLIGHTLY-CLOUDY; BILIRUBIN,URINE NEGATIVE (NEGATIVE); COLOR,URINE YELLOW; GLUCOSE, URINE NEGATIVE (NEGATIVE); KETONES,URINE 20 mg/dL (NEGATIVE); PROTEIN,URINE 30 mg/dL (NEGATIVE); UROBILINOGEN,URINE NEGATIVE mg/dL (<2.0)
[2019-06-04] MEDS ORDERED: PROMETHAZINE HCL INJ 50 MG/1 ML VIAL ONE (17:37)
[2019-06-04 17:38] LABS: URINE AMPHETAMINES SCREEN NEGATIVE; URINE BARBITURATES SCREEN NEGATIVE; URINE BENZODIAZEPINES SCREEN NEGATIVE; URINE COCAINE SCREEN NEGATIVE; URINE METHADONE SCREEN NEGATIVE; URINE PHENCYCLIDINE SCREEN NEGATIVE
[2019-06-04 17:45] LABS: URINE MARIJUANA (THC) SCREEN UNCONFIRMED POSITIVE
[2019-06-04 18:14] VITALS: BP 126/94
== END 2019-06-04 18:13 | disposition home or self-care (01) ==
LOC: ER 10:28
DX: K52.9 Noninfective gastroenteritis and colitis, unspecified (principal); R11.2 Nausea with vomiting, unspecified; F17.200 Nicotine dependence, unspecified, uncomplicated; Z88.0 Allergy status to penicillin
CPT/HCPCS: 99284; 96361; 96374; 96375; 36415; 87210; 83690; 84703; 85025; 80053; 81001; 80307; 87491; 87591; 76705; 76830; 93976; 74177; S0119; J3490; J2550; J7030; J0696